=== PATIENT | female | born 1985 | race Asian ===

== ENCOUNTER 2024-02-08 08:00 | Outpatient (CLI) | payer OTHER ==
[2024-02-08 17:48] LABS: BILIRUBIN,URINE NEGATIVE (NEGATIVE); CLARITY,URINE CLEAR (CLEAR); GLUCOSE, URINE (UA) NEGATIVE (NEGATIVE); KETONES,URINE (UA) NEGATIVE (NEGATIVE); LEUKOCYTE ESTERASE, URINE SMALL (NEGATIVE); NITRITE,URINE NEGATIVE (NEGATIVE); OCCULT BLOOD,URINE NEGATIVE (NEGATIVE); PROTEIN,URINE NEGATIVE (NEGATIVE); UROBILINOGEN,URINE 0.2 (NORMAL) E.U./dL (NORMAL)
[2024-02-08 18:01] LABS: BACTERIA,URINE Few /HPF (None Seen); RBC,URINE 0-5 /HPF (0-5); SQUAMOUS EPITHELIAL CELL,UR MOD Squamous (<= Few)
== END 2024-02-08 23:59 | disposition home or self-care (01) ==
LOC: LAB.WC 08:00
PROVIDERS: ATTEND Obstetrics & Gynecology
DX: Z34.90 Encounter for supervision of normal pregnancy, unspecified, unspecified trimester (principal)
CPT/HCPCS: 81001; 87086

== ENCOUNTER 2024-02-09 16:16 | Outpatient (CLI) | payer OTHER ==
[2024-02-09 20:48] LABS: BASOPHILS % (AUTO) 0.3 %; EOSINOPHILS # (AUTO) 0.1 10^3/uL (0.0-0.7); EOSINOPHILS % (AUTO) 0.9 %; HCT - HEMATOCRIT 34.4 % (37.0-47.0); HGB - HEMOGLOBIN 11.1 g/dL (12.0-16.0); LYMPHOCYTES # (AUTO) 2.3 10^3/uL (1.5-3.5); LYMPHOCYTES % (AUTO) 26.9 %; MEAN CORPUSCULAR HEMOGLOBIN 26.9 pg (27.0-31.0); MEAN CORPUSCULAR HGB CONC 32.3 g/dL (32.0-36.0); MEAN CORPUSCULAR VOLUME 83.3 fL (81.0-99.0); MEAN PLATELET VOLUME 9.6 fL (7.9-10.8); MONOCYTES # (AUTO) 0.6 10^3/uL (0.0-1.0); MONOCYTES % (AUTO) 6.4 %; NEUTROPHILS # (AUTO) 5.6 10^3/uL (1.5-6.6); NEUTROPHILS % (AUTO) 65.2 %; PLT - PLATELET COUNT 293 10^3/uL (130-450); RED BLOOD COUNT 4.13 10^6/uL (4.20-5.40); RED CELL DISTRIBUTION WIDTH 13.5 % (12.0-15.0); WHITE BLOOD COUNT 8.6 x10^3/uL (4.8-10.8)
== END 2024-02-09 16:17 | disposition home or self-care (01) ==
LOC: LAB.N 16:16
PROVIDERS: ATTEND Obstetrics & Gynecology
DX: Z34.90 Encounter for supervision of normal pregnancy, unspecified, unspecified trimester (principal)
CPT/HCPCS: 36415; 85025; 86592; 86762; 86787; 86803; 86850; 86900; 86901; 87340; 87389

== ENCOUNTER 2024-02-25 13:22 | Outpatient (CLI) | payer OTHER ==
--- NOTE | 2024-02-25 16:58 | Ultrasound Report ---
PROCEDURE: OB 1st Trimester INDICATIONS: POSITIVE TEST OUTSIDE/PRIOR DATING DATA: Last menstrual period (LMP): 12/24/2023. LMP-based estimated date of delivery (LAMBERTO): 09/29/2024. First dating scan (date and location): Today's exam 09/28/2024. Estimated date of delivery (LAMBERTO) from first dating scan: . TECHNIQUE: Real-time scanning was performed of the fetus and maternal pelvic organs, with image documentation. COMPARISON: None. FINDINGS: Intrauterine gestational sac present. Embryo: 2.44 cm, 9 weeks 1 day Heart rate: 180 bpm. Other: No perigestational fluid collection. Measurement variability in dating: +/- 4 weeks by LMP, +/- 7 days by mean sac diameter (use before 6 weeks gestation if crown-rump length not able to be measured), +/- 5 days by crown-rump length (6-12 weeks gestation). Maternal organs: Ovaries appear within normal limits. IMPRESSION: Single living intrauterine at 9 weeks 1 day, LAMBERTO of 09/28/2024. Reviewed by: Soren Martinez MD on 02/25/2024 4:57 PM PDT Approved by: Soren Martinez MD on 02/25/2024 4:57 PM PDT Station ID: [id number]
== END 2024-02-25 13:23 | disposition home or self-care (01) ==
LOC: DI 13:22
PROVIDERS: ATTEND Obstetrics & Gynecology
DX: O26.21 Pregnancy care for patient with recurrent pregnancy loss, first trimester (principal); Z3A.09 9 weeks gestation of pregnancy

== ENCOUNTER 2024-03-13 11:50 | Outpatient (CLI) | payer OTHER ==
[2024-03-13 12:46] LABS: CREATININE,URINE 81.1 mg/dL; PROTEIN/CREATININE RATIO,URINE 0.1 (<=0.2)
[2024-03-13 12:48] LABS: ALBUMIN 4.4 g/dL (3.2-5.5); ALBUMIN/GLOBULIN RATIO 1.3 (1.0-2.2); BILIRUBIN,TOTAL 0.3 mg/dL (0.2-1.0); CALCIUM 9.4 mg/dL (8.5-10.3); CREATININE 0.5 mg/dL (0.6-1.3); POTASSIUM 3.4 mmol/L (3.5-4.5); TOTAL PROTEIN 7.9 g/dL (6.4-8.9)
[2024-03-13 14:14] LABS: ESTIMATED AVERAGE GLUCOSE 94 mg/dL (70-100); HEMOGLOBIN A1c% 4.9 % (4.27-6.07)
== END 2024-03-13 11:51 | disposition home or self-care (01) ==
LOC: LAB 11:50
PROVIDERS: ATTEND Obstetrics & Gynecology
DX: O09.521 Supervision of elderly multigravida, first trimester (principal); O99.891 Other specified diseases and conditions complicating pregnancy; N89.8 Other specified noninflammatory disorders of vagina
CPT/HCPCS: 36415; 80053; 82570; 83036; 84156

== ENCOUNTER 2024-04-10 08:00 | Outpatient (CLI) | payer OTHER ==
[2024-04-10 20:55] LABS: CHLAMYDIA TRACHOMATIS DNA NEGATIVE (NEGATIVE); NEISSERIA GONORRHOEAE DNA NEGATIVE (NEGATIVE); TRICHOMONAS VAGINALIS DNA NEGATIVE (NEGATIVE)
== END 2024-04-10 23:59 | disposition home or self-care (01) ==
LOC: LAB.WC 08:00
PROVIDERS: ATTEND Obstetrics & Gynecology
DX: Z11.3 Encounter for screening for infections with a predominantly sexual mode of transmission (principal)
CPT/HCPCS: 87491; 87591; 87661

== ENCOUNTER 2024-05-14 18:22 | Outpatient (CLI) | payer OTHER ==
[2024-05-14 18:51] VITALS: BP 121/61; O2SAT 97
[2024-05-14 19:02] LABS: BILIRUBIN,URINE NEGATIVE (NEGATIVE); GLUCOSE, URINE (UA) NEGATIVE (NEGATIVE); KETONES,URINE (UA) NEGATIVE (NEGATIVE); LEUKOCYTE ESTERASE, URINE NEGATIVE (NEGATIVE); NITRITE,URINE NEGATIVE (NEGATIVE); OCCULT BLOOD,URINE NEGATIVE (NEGATIVE); PROTEIN,URINE NEGATIVE (NEGATIVE); UROBILINOGEN,URINE 0.2 (NORMAL) E.U./dL (NORMAL)
[2024-05-14 19:03] LABS: CLARITY,URINE CLEAR (CLEAR)
--- NOTE | 2024-05-14 20:28 | PROVIDER PROGRESS NOTE ---
- HPI Chief Complaint: Other (cramping) Current : Vital Signs Temperature 98.2 F 05/14/24 18:34 Temperature 98.2 F 05/14/24 18:44 Heart Rate 80 05/14/24 18:44 Respiratory Rate 14 05/14/24 18:44 Blood Pressure 121/61 05/14/24 18:44 O2 Saturation 97 05/14/24 18:44 If not protocol: Oxygen Flow, liters/minute - Plan Plan: Su is a 39 yo at 20w2d who presents today for cramping. She reports cramping starting this afternoon, has not timed but estimates about every 15 - min. Denies vaginal bleeding, abnormal discharge, vaginal itching/irritation, bothersome urinary symptom (dysuria/frequency), diarrhea/constipation (last BM was yesterday), N/V, F/C. She is still feeling some cramping in triage but reports that it is a little better. + FM. RN reports abdomen soft, unable to palpate any contractions. Gen: NAD Chest: non labored respirations Abd: gravid, mildly TTP across lower abdomen R>L, no rebound/guarding Spec: small clear/white discharge present, cervix appears closed, no bleeding SVE: gentle SVE performed, external os closed [place]: quiet Labs reviewed: UA neg A/P: 39 yo at 20w2d with pelvic cramping. No evidence of labor. Vaginal swab collected for GC/CT/trich/BV, she did have trichimonas earlier in (negative on recheck on 04/10), will notify if treatment needed. Increased hydration, tylenol PRN, use of support belt discussed. Su is reassured and feels comfortable with discharge home. I have encouraged to her return to L&D with worsening symptoms/signs of labor. Sim Hanna MD
[2024-05-14 21:43] LABS: BACTERIAL VAGINOSIS DNA NEGATIVE (NEGATIVE); CANDIDA GLABRATA DNA NEGATIVE (NEGATIVE); CANDIDA GROUP DNA NEGATIVE (NEGATIVE); CANDIDA KRUSEI DNA NEGATIVE (NEGATIVE); TRICHOMONAS VAGINALIS DNA NEGATIVE (NEGATIVE)
== END 2024-05-14 20:20 | disposition home or self-care (01) ==
LOC: WFO 18:22 → FBP 18:24 → WFO 20:20
PROVIDERS: ATTEND Obstetrics & Gynecology
DX: O99.891 Other specified diseases and conditions complicating pregnancy (principal); R10.2 Pelvic and perineal pain; R10.814 Left lower quadrant abdominal tenderness; R10.813 Right lower quadrant abdominal tenderness; Z3A.20 20 weeks gestation of pregnancy; Z86.19 Personal history of other infectious and parasitic diseases
CPT/HCPCS: 81003; 81514; 99213

== ENCOUNTER 2024-09-22 02:58 | Inpatient (IN) ==
[2024-09-22] MEDS ORDERED: SODIUM CHLORIDE FLUSH 0.9% 10 ML SYRINGE IVP PRN (03:36)
[2024-09-22] MEDS ORDERED: METHYLERGONOVINE 0.2 MG/ML VIAL IM PRN (03:36)
[2024-09-22] MEDS ORDERED: NIFEdipine 10 MG CAPSULE PO PRN ×2 (03:36→22:37)
[2024-09-22] MEDS ORDERED: OXYTOCIN 10 UNIT/ML VIAL IM PRN (03:36)
[2024-09-22] MEDS ORDERED: lidocaine 1% 20 ML MDV ID PRN (03:36)
[2024-09-22] MEDS ORDERED: TERBUTALINE 1 MG/ML VIAL SUBQ PRN (03:36)
[2024-09-22] MEDS ORDERED: miSOPROStoL 200 MCG TABLET BC PRN (03:36)
[2024-09-22] MEDS ORDERED: OXYTOCIN/SODIUM CHLORIDE 500 ML IV PRN ×2 (03:36→22:37)
[2024-09-22] MEDS ORDERED: LABETALOL 20 MG/4 ML SYRINGE IVP PRN ×5 (03:36→22:37)
[2024-09-22] MEDS ORDERED: miSOPROStoL 200 MCG TABLET PR PRN (03:36)
[2024-09-22] MEDS ORDERED: TRANEXAMIC ACID IN NACL 1,000 MG/100 ML BAG IV PRN (03:36)
[2024-09-22] MEDS: AMPICILLIN 2 GM in SODIUM CHLORIDE 0.9% MINIBAG 100 ML IV ONE (04:30)
[2024-09-22] MEDS: LACTATED RINGERS 1,000 ML IV PRN (04:34)
[2024-09-22] MEDS ORDERED: MAGNESIUM SULFATE IN WATER 20 GM/500 ML IV.SOLN IV ONE (04:41)
[2024-09-22] MEDS: LABETALOL 20 MG/4 ML SYRINGE IVP PRN ×2 (04:41→11:50)
[2024-09-22] MEDS: fentaNYL 100 MCG/2 ML VIAL IVP PRN (04:42)
[2024-09-22 04:52] LABS: BASOPHILS % (AUTO) 0.4 %; EOSINOPHILS # (AUTO) 0.1 10^3/uL (0.0-0.7); HCT - HEMATOCRIT 34.4 % (37.0-47.0); HGB - HEMOGLOBIN 11.2 g/dL (12.0-16.0); LYMPHOCYTES % (AUTO) 28.7 %; MEAN CORPUSCULAR HEMOGLOBIN 27.1 pg (27.0-31.0); MEAN CORPUSCULAR HGB CONC 32.6 g/dL (32.0-36.0); MEAN CORPUSCULAR VOLUME 83.3 fL (81.0-99.0); MEAN PLATELET VOLUME 10.6 fL (7.9-10.8); MONOCYTES # (AUTO) 0.6 10^3/uL (0.0-1.0); MONOCYTES % (AUTO) 8.7 %; NEUTROPHILS # (AUTO) 4.1 10^3/uL (1.5-6.6); NEUTROPHILS % (AUTO) 57.8 %; PLT - PLATELET COUNT 179 10^3/uL (130-450); RED BLOOD COUNT 4.13 10^6/uL (4.20-5.40); RED CELL DISTRIBUTION WIDTH 16.9 % (12.0-15.0); WHITE BLOOD COUNT 7.1 x10^3/uL (4.8-10.8)
[2024-09-22] MEDS: MAGNESIUM SULFATE 2 GRAM 2 GM/50 ML BAG IV ONE (04:56)
--- NOTE | 2024-09-22 04:56 | HISTORY & PHYSICAL EXAMINATION ---
Admit History Visit Reason Visit Reason: Contractions and Membranes rupture Care: positive [facility] Risk/History: positive induced HTN Smoking Status: Never smoker Other Maternal History Other Maternal History: presents with SROM. clear fluid. contractions last night and this evening that kept her awake. She did get about 2 hrs of sleep before she came in. Headache a few days ago but not now. no edema. Intake Visit Reasons: 38 wk OB & NST Clinical Staff Note: Pt here for her 38.4wk visit and NST. Pt states she had a EM a couple days ago that did not go away with Tylenol and states she also had some visual changes. No EM today. Allergies No Known Drug Allergies Allergy (Verified 09/19/24 09:58) Home Medications - Last Reconciled 09/19/24 by Latrice Anderson RN aspirin (Adult Aspirin Regimen) 81 mg PO QDAY PNV #[id number] 30 mg iron-10 mg iron-1 mg caps PO Specific Issues/Plans LMP: 12/24/23 LAMBERTO by LMP: 09/29/24 US:02/25/24 @ 9+1 c/w LMP (us lamberto 09/28/2024) Final LAMBERTO:09/29/2024 Problems: - hx of SAB x3, most recent 08/2023 - AMA 39 yo. NIPT drawn. ASA ordered. 19 weeks has ASA but not taking. importance reviewed. [ ]plan for weekly NSTs at 36wks, IOL at 39wk - trichomonas 03/13/24. test of cure neg. - back pain, h/o scoliosis - PT ordered. Consider anesthesia exam pre-delivery. - S>D, growth US 08/25/24 with EFW 97.8%tile FOB: Wil. His 1st child, 2nd together. Her 3 children 20, 18, 8 - Juliann from prior FOB in [facility]. He 02/2024. baby is a boy, Wil [place]. Pre- Weight:137.0 BMI: 26.85 Blood type: B+ Antibody:Negative CBC: H/H 11.1/34.4 plt 293 RUB:Immune VZV:Immune HBsAg: Negative HepC: NR RPR/AB-EIA: NR HIV:NR PAP:03/13/24 ASCUS HPV51+, COLPO 04/10/24 Repeat PAP GC/CT:Negatvie HSV:denies in self and partner Genetic testing:NIPT negative FAS: 05/24 Placenta: anterior without previa Cord: 3VC SIOBHAN: WNL EFW: 98%ile 50gm OGCT: 110 3HR GTT: TDAP: 07/17/24 given mls Breast Pump: info given RSV: 08/14/24 given mls Antibody screen: 3rd trimester H/H 11.1/33.9 PLT 272 3rd trimester HIV GBS: *POSITIVE* Delivery plan: IOL at 39wks MOD: Contraception: planning for sterilization, PP vs laparoscopic OB Visit Log Initial Weight: 137 lb Date EGA Weight BP Fundal ht Pres HR Movement CTX Edema Cerv Dil Cerv Eff % Sta 06/05/24 23w 3d 143 lb(+6 lb) 114/60 22 150 active abs ent 07/13/24 28w 6d 151 lb(+14 lb) 110/68 24 Cephalic 155 active ab sent 07/17/24 29w 3d 152 lb(+15 lb) 106/60 26 150 absent oc casional absent 07/31/24 31w 3d 152 lb(+15 lb) 120/80 34 150 active ab sent 08/14/24 33w 3d 157 lb(+20 lb) 122/76 Cephalic 140 active occa sional absent 08/21/24 34w 3d 158 lb(+21 lb) 130/70 3637 cephalic 145 active occasional absen t 1 30 -3 09/04/24 36w 3d 158 lb 4 oz(+21 lb 4 oz) 138/79 38 ceph alic active occasional absent 09/13/24 37w 5d 162 lb(+25 lb) 130/76 38 155 active oc casional absent Notes Visit Date: 09/13/24 Last Updated by: Bravo Cisneros MD Discussed labor precautions. Discussed kick counts. Ready to be done, as she feels like everything is just harder. Discussed elective induction after 39 weeks. Visit Date: 09/04/24 Last Updated by: Sim Hanna MD Reports still having contractions, but irregular, unchanged since her triage visit over the weekend. NST today. Declines repeat SVE today. Recent growth US reviewed, SIOBHAN 23.9, EFW 3256g, 97.8%tile. She does feel like this baby is bigger than her others (largest 5lb5oz). She is nervous about having a big baby. Asks about delivery. We discussed recommendation for offering primary delivery with EFW of > 5000g without diabetes. Discussed if her US EFW was correct, EFW around 39-40wks would be approx 4250- 4500g. We discussed limitations of ultrasound in estimating weight, can be over or under estimate. EFW on [place] today 3200-3400g. We discussed that concern for macrosomia not an indication for IOL before 39wks. We discussed risks of shoulder dystocia, and although there may be an increase risk in the setting of macrosomia, it is difficult to predict and that most babies with macrosomia do not experience shoulder dystocia. Can reassess next visit. Visit Date: 08/21/24 Last Updated by: Sim Hanna MD Theresa reports having pubic bone pain as well as pain in her lower back. Discussed use of support band. She reports occasional contractions, feeling 2-3 contractions a day. Requests cervical exam, reports that with her first , she never really felt painful contractions but was 8cm when she arrived at the hospital. SVE 1-3. We discussed labor precautions in detail. Recommended that we start weekly NSTs at 36wks and plan for IOL in the 39th week for AMA. She has a growth US ordered, but has not heard from hospital about scheduling it, given number to call. Visit Date: 08/14/24 Last Updated by: Bravo Cisneros MD Doing very well today. RSV vaccine received. Baby is active. Having some cramping at night, but nothing regular. Belly band has improved belly and back pain greatly and continues to wear today. No leaking or bleeding. No signs of preeclampsia. Visit Date: 07/31/24 Last Updated by: Sim Hanna MD Reports persistent cold symptoms, confused about what she can take over the counter. More detailed list of safe medications in provided. Plan for growth US for S>D which is ordered. Discussed EPDS which is elevated today, 13. Thinks this is because of her not feeling well with cold symptoms. Declines need for referral for counseling or for medications for her mood. Can reassess at follow up visit. Discussed movement, she overall feels that baby's movement is normal today. labor/ movement precautions reviewed. Visit Date: 07/17/24 Last Updated by: Bravo Cisneros MD Patient doing well today. Occasional contractions at night. Consents to Tdap today. Discussed third trimester expectations. Visit Date: 07/13/24 Last Updated by: Bravo Cisneros MD Doing well today. Wants to wait on TDaP. Repeat US scheduled. Consents for tubal signed. Wants elective as she is worried the baby is big. Discussed that insurance likely will not pay for it, but we will look into it. Visit Date: 06/05/24 Last Updated by: Bravo Cisneros MD Doing very well aside from ongoing back pain. Has support belt, but has not tried. Encouraged to try and see. Ordered OGCT, RPR, CBC and will do between next week and next visit. Likely plan for growth scan in 3rd trimester but will assess after GDM screen. Encouraged staying active despite discomfort. last US: PROCEDURE: US OB Follow up INDICATIONS: UTERINE SIZE-DATE DISCREPANCY - EO OUTSIDE/PRIOR DATING DATA: Last menstrual period (LMP): 12/24/2023 LMP-based estimated date of delivery (LAMBERTO): 09/29/2024. First dating scan (date and location): 02/25/2024. Estimated date of delivery (LAMBERTO) from first dating scan: 09/28/2024. The below data below was generated using the working LAMBERTO of 09/29/2024 TECHNIQUE: Real-time scanning was performed of the fetus, with image documentation and biometric measurements. Endovaginal scanning: Not performed. COMPARISON: 05/24/2024. FINDINGS: General: A single living intrauterine gestation is present. Presentation: Vertex Placenta: Placental position is anterior, without previa. Amniotic fluid index: 23.9 cm, 93.2 percentile for gestational age. heart rate: 148 beats per minute. Maternal cervical canal: 3.27 cm long; normal length is 2.5 cm or more. biometrics: Biparietal diameter: 9.14 cm, 37 weeks 1 day, 94.8 percentile Head circumference: 32.7 cm, 37 weeks 1 day, 70th percentile Abdominal circumference: 34.69 cm, 38 weeks 4 days, greater than 99.5 percentile Femur length: 6.97 cm, 35 weeks 5 days, 63.2 percentile Estimated gestational age from initial scan: 35 weeks 0 days Composite gestational age from present scan: 37 weeks 1 day Estimated weight and percentile: 3256.5 g, 97.8 percentile Measurement variability in biometric dating: +/- 10 days from 12-20 weeks gestation, +/- 2 weeks from 20-30 weeks gestation, +/- 3 weeks at 30 weeks gestation or more. Other: Not applicable. IMPRESSION: 1. Living late third trimester intrauterine . Current ultrasound age is 15 days greater than clinical age based on initial LMP. Estimated weight is 97.8 percentile. 2. Borderline polyhydramnios, slightly less than 95th percentile. Reviewed by: Selvin Humphreys MD on 08/25/2024 HPI Diagnosis/Indication for NST: Gestational Hypertension Current : Vital Signs Pulse Rate 73 09/22/24 04:41 Blood Pressure 174/92 H 09/22/24 04:41 NST Procedure NST Procedure: baseline 140, + acels no decels Results and Plan Findings/Impression: reactive NST Plan: admit for labor. Meds/Allgy Home Medications Ambulatory Orders Medication Instructions Recorded Confirmed aspirin 81 mg tablet,delayed 81 mg PO QDAY 06/05/24 09/19/24 release (Adult Aspirin Regimen) vitamin#30 30 mg iron-10 cap PO 06/05/24 09/19/24 mg iron-folic acid 1 mg-omg3 capsule Allergies Allergies Allergy/AdvReac Type Severity Reaction Status Date / Time No Known Drug Allergies Allergy Verified 09/19/24 09:58 [facility] Medical History Medical History (Updated 09/22/24 @ 05:14 by Tanisha Acosta MD) Miscarriage x 2 in [facility]. no complications. Vaginal delivery x 3 in [facility]. largest baby 7 pounds. different FOB. that man 02/2024. no epidural. no complications. Scoliosis Family History Family History (Updated 07/13/24 @ 11:08 by Bravo Cisneros MD) Sister High blood pressure Mother High blood pressure Uterine cancer Aunt Breast cancer Social History Social History (Updated 06/05/24 @ 10:40 by Sully Lyn MA) Smoking Status: Never smoker ETOH Use: None Substance Use: denies use Physical Abdominal Exam Vital Signs: Pulse BP 73 174/92 H 09/22/24 04:41 09/22/24 04:41 Contraction Frequency (min/apart): q3-4 min Contraction Intensity: positive Moderate to strong Uterine Resting Tone: positive Soft Monitoring Heart Rate Baseline: 140 Strip Review: positive Category I Presentation Presentation: positive Vertex Vaginal Exam Membranes: positive Membranes ruptured Dilation (in cm): per rn 4 cm Speculum Exam Speculum Exam Performed: positive No Findings: positive Gross leak Other Notes Labor Progress Note/Additional Text: BP quite elevated. no other symptoms of PreE Plan for Labor Plan For Labor I expect patient to be DC'd or transferred within 96 hours.: Yes Plan for Labor: admit. ampicillin for GBS magnesium sulfate for seizure prophylaxis. 2 gm load and 1 gm/hr labetolol 10 mg iv anesthesia on their way for epidural. I do not want to bottom out bp before epidural. patient is very small so going low on doses. baby is very large. will need to watch for shoulder dystocia. EFW about 4.3 kg. prior baby 7 pounds. Conclusion/Plan Problem List (1) Severe preeclampsia: Qualifiers: Trimester: third trimester Qualified Code(s): O14.13 - Severe pre- eclampsia, third trimester (2) Large for dates complicating in third trimester, antepartum: Qualifiers: Fetus number: single or unspecified fetus Qualified Code(s): O36.63X0 - Maternal care for excessive growth, third trimester, not applicable or unspecified (3) GBS (group B Streptococcus carrier), +RV culture, currently : Lab Results Lab results reviewed: Yes 09/22/24 04:25
[2024-09-22 05:06] LABS: ALBUMIN 3.5 g/dL (3.2-5.5); ALBUMIN/GLOBULIN RATIO 1.1 (1.0-2.2); BILIRUBIN,TOTAL 0.3 mg/dL (0.2-1.0); CALCIUM 9.1 mg/dL (8.5-10.3); CREATININE 0.6 mg/dL (0.6-1.3); POTASSIUM 3.6 mmol/L (3.5-4.5); TOTAL PROTEIN 6.8 g/dL (6.4-8.9)
[2024-09-22] MEDS ORDERED: ROPIVACAINE 0.2% 200 MG/100 ML BAG EP ONE (05:15)
[2024-09-22] MEDS ORDERED: LIDOCAINE 2%-EPI 1:100000 20 ML MDV ONE ×4 (05:15→20:04)
[2024-09-22] MEDS: MAGNESIUM SULFATE IN WATER 20 GM/500 ML IV.SOLN IV SCH (05:39)
--- NOTE | 2024-09-22 06:02 | ANESTHESIA PROCEDURE NOTE ---
Pre-Anesthesia VS, & Labs Diagnosis Surgical Diagnosis:: labor pain Procedure Procedure: labor epidural Vitals Vital Signs: Temp Pulse Resp BP 36.9 C 73 18 174/92 H 09/22/24 03:19 09/22/24 04:41 09/22/24 03:19 09/22/24 04:41 NPO NPO: Other Is Patient ?: Yes Lab Results Current Lab Results: Laboratory Tests 09/22/24 04:25: WBC 7.1, RBC 4.13 L, Hgb 11.2 L, Hct 34.4 L, MCV 83.3, MCH 27.1, MCHC 32.6, RDW 16.9 H, Plt Count 179, MPV 10.6, Neut # (Auto) 4.1, Lymph # (Auto) 2.0, [place] # (Auto) 0.6, Eos # (Auto) 0.1, Baso # (Auto) 0.0, Absolute Nucleated RBC 0.00, Nucleated RBC % 0.0, Sodium 135, Potassium 3.6, Chloride 108, Carbon Dioxide 18 L, Anion Gap 9.0, BUN 9, Creatinine 0.6, Estimated GFR (MDRD) 110, Glucose 79, Calcium 9.1, Total Bilirubin 0.3, AST 16, ALT 11, A lkaline Phosphatase 153 H, Total Protein 6.8, Albumin 3.5, Globulin 3.3, Albumin/Globulin Ratio 1.1, Blood Type B POSITIVE, Antibody Screen NEGATIVE 09/22/24 04:25 09/22/24 04:25 Meds/Allgy Home Medications Ambulatory Orders Medication Instructions Recorded Confirmed aspirin 81 mg tablet,delayed 81 mg PO QDAY 06/05/24 09/19/24 release (Adult Aspirin Regimen) vitamin#30 30 mg iron-10 cap PO 06/05/24 09/19/24 mg iron-folic acid 1 mg-omg3 capsule Allergies Allergies Allergy/AdvReac Type Severity Reaction Status Date / Time No Known Drug Allergies Allergy Verified 09/19/24 09:58 [facility] Medical History Medical History (Updated 09/22/24 @ 05:14 by Tanisha Acosta MD) Miscarriage x 2 in [facility]. no complications. Vaginal delivery x 3 in [facility]. largest baby 7 pounds. different FOB. that man 02/2024. no epidural. no complications. Scoliosis Family History Family History (Updated 07/13/24 @ 11:08 by Bravo Cisneros MD) Sister High blood pressure Mother High blood pressure Uterine cancer Aunt Breast cancer Social History Social History (Updated 06/05/24 @ 10:40 by Sully Lyn MA) Smoking Status: Never smoker ETOH Use: None Substance Use: denies use Anesthesia Exam (Expanded) Exam General: Alert, Oriented x3 and Moderate distress Dental: WNL Mouth Openin Fingerbreadth Neck Mobility: Normal Mallampati classification: III Thyromental Distance: 4-6 cm Respiratory: Lungs clear Cardiovascular: Regular rate Plan Problem List (1) Severe preeclampsia: Qualifiers: Trimester: third trimester Qualified Code(s): O14.13 - Severe pre- eclampsia, third trimester (2) Large for dates complicating in third trimester, antepartum: Qualifiers: Fetus number: single or unspecified fetus Qualified Code(s): O36.63X0 - Maternal care for excessive growth, third trimester, not applicable or unspecified (3) GBS (group B Streptococcus carrier), +RV culture, currently : Plan Anesthesia Type: Epidural Consent for Procedure(s) Verified and Reviewed: Yes Code Status: Attempt Resuscitation ASA Classification ASA classification: 3-Severe systemic disease Is this case an emergency?: No
[2024-09-22] MEDS ORDERED: METOCLOPRAMIDE 10 MG/2 ML VIAL IVP PRN ×2 (06:04→22:03)
[2024-09-22] MEDS ORDERED: NALBUPHINE 10 MG/ML AMP IVP PRN (06:04)
[2024-09-22] MEDS ORDERED: NALOXONE 0.4 MG/ML VIAL IVP PRN ×3 (06:04→22:37)
[2024-09-22] MEDS ORDERED: diphenhydrAMINE INJ 50 MG/ML VIAL IVP PRN (06:04)
[2024-09-22] MEDS ORDERED: ePHEDrine 50 MG/ML VIAL IVP PRN ×2 (06:04→22:03)
[2024-09-22] MEDS: AMPICILLIN 1 GM in SODIUM CHLORIDE 0.9% MINIBAG 100 ML IV SCH (08:11)
[2024-09-22] MEDS: LACTATED RINGERS 500 ML IV ONE (08:12)
[2024-09-22] MEDS: SODIUM CHLORIDE FLUSH 0.9% 10 ML SYRINGE IVP SCH (08:13)
[2024-09-22] MEDS: LABETALOL 100 MG TABLET PO SCH (10:23)
[2024-09-22] MEDS: OXYTOCIN/SODIUM CHLORIDE 500 ML IV SCH (10:34)
[2024-09-22] MEDS: ROPIVACAINE 0.2% 200 MG/100 ML BAG EP PRN (13:39)
--- NOTE | 2024-09-22 13:48 | MISCELLANEOUS PROVIDER NOTE ---
Miscellaneous Provider Note - Note: called as patient uncomfortable this am, epidural increased from 6 to 8 cc/hr. Called again at 1347 as again uncomfortable, increased epidural continuous rate from 8 to 10 and increased PCEA dose to 5 Q10 min. Patient comfortable with contraction before I left the bedside.
--- NOTE | 2024-09-22 14:05 | PROVIDER PROGRESS NOTE ---
Labor Progress Note Labor Progress Note Labor Progress Note/Additional Text: S: Having some pain with contractions, epidural in place. Discussed possible IUPC placement if SVE unchanged, she did accept. O: VS reviewed SVE: unchanged, 7-8/80/-1, more cervix on right side. IUPC placed. monitoring: FHTs: 130s bpm baseline, + accel, - decel, mod variability [place]: 4-7 min Cat 1 A/P: 39 yo at 39w0d: - SROM in labor - GBS+ on ampicillin - Severe preeclampsia, on magnesium - Suspected macrosomia - SVE unchanged, therefore, IUPC placed. Tried starting pitocin earlier, but prolonged deceleration occured. FHTs have since been Cat 1 and contractions are inadequate. Discussed trying to start pitocin again and Su pelaez agree. Plan for repeat SVE in 2 hours. - Currently on magnesium, started labetalol 200mg BID. Continue to monitor blood pressures and will treat hypertension as needed - We have discussed possible risk of shoulder dystocia, will continue to monitor labor progress closely. Sim Hanna MD
--- NOTE | 2024-09-22 17:40 | PROVIDER PROGRESS NOTE ---
Labor Progress Note Labor Progress Note Labor Progress Note/Additional Text: S: Comfortable with epidural. + headache. O: VS reviewed. SVE: /-1, cervix much softer and stretchy compared to last exam. monitoring: FHTs: 130s bpm baseline, + accel, - decel, mod variability [place]: 2-4 min, inadequate MVUs Cat 1 A/P: 39 yo at 39w0d: - SROM in labor - GBS+ on ampicillin - Severe preeclampsia, on magnesium - Suspected macrosomia - Cervical change with this last check. Continue pitocin augmentation with titration to adequate MVUs. Has made slow progress in active labor, however, contractions had spaced and were very inadequate. Discussed reasonable to keep proceeding with labor and trying to obtain adequate MVUs with pitocin (MVUs have not yet been adequate). Will continue to watch labor progress closely with repeat SVE in 2 hrs. Su in agreement with plan. Sim Hanna MD
[2024-09-22] MEDS: ONDANSETRON 4 MG/2 ML VIAL IVP PRN (17:54)
[2024-09-22] MEDS ORDERED: SODIUM CHLORIDE 0.9% 10 ML VIAL IVP ONE ×3 (18:47→21:50)
[2024-09-22] MEDS ORDERED: AZITHROMYCIN INJ 500 MG in SODIUM CHLORIDE 0.9% 250 ML IV SCH (20:00)
[2024-09-22] MEDS ORDERED: ceFAZolin 2 GM VIAL ONE (20:01)
[2024-09-22] MEDS ORDERED: OXYTOCIN/SODIUM CHLORIDE 500 ML IV ONE (20:04)
[2024-09-22] MEDS: ACETAMINOPHEN 500 MG TABLET PO ONE (20:04)
[2024-09-22] MEDS ORDERED: PHENYLEPHRINE HCL 0.5 MG/5 ML AMPULE ONE (20:07)
[2024-09-22] MEDS ORDERED: ePHEDrine 50 MG/ML VIAL IVP ONE (20:07)
--- NOTE | 2024-09-22 20:14 | PROVIDER PROGRESS NOTE ---
Labor Progress Note Labor Progress Note Labor Progress Note/Additional Text: S: To bedside for repeat SVE. Su expresses interested in proceeding with primary delivery now. O: VS reviewed SVE: monitoring: FHTs: 130s bpm baseline, + accel, few small variable decelerations, mostly mod variability with periods of minimal variability [place]: 1-3 min, MVUs adequate starting around 7pm Cat 2 A/P: Minimal change with this cervical exam. MVUs just recently adequate on pitocin. Discussed that it is reasonable to proceed for at least another 2-4 hours, however, Su expresses desire for primary delivery now. She has previously signed [facility] consent for sterilization and also desires to proceed with bilateral salpingectomy. We reviewed risks of delivery including pain, bleeding (possibly requiring blood transfusion or as a life-saving measure hysterectomy), infection, damage to nearby structures including bowel/bladder, longer recovery time , increased risk for DVT, risk of /injury to mom or baby. Discussed increased risk for complications when is done in labor. With regards to bilateral salpingectomy, reviewed permanence and discussed risk of regret, possible ectopic . Consent was signed. Order for T&C x 2 units. Sim Hanna MD
[2024-09-22] MEDS: ceFAZolin (2G) 2 GM in SODIUM CHLORIDE 0.9% MINIBAG 100 ML IV ONE (20:42)
[2024-09-22] MEDS ORDERED: ROPIVACAINE 0.5% PF 20 ML VIAL ONE ×2 (20:54→21:50)
[2024-09-22] MEDS ORDERED: miSOPROStoL 200 MCG TABLET ONE (21:08)
[2024-09-22] MEDS ORDERED: METHYLERGONOVINE 0.2 MG/ML VIAL ONE (21:08)
[2024-09-22] MEDS ORDERED: CARBOPROST TROMETHAMINE 250 MCG/ML VIAL IM ONE (21:08)
[2024-09-22] MEDS ORDERED: TRANEXAMIC ACID 1,000 MG/10 ML VIAL ONE (21:13)
[2024-09-22] MEDS ORDERED: OXYTOCIN 10 UNIT/ML VIAL ONE (21:21)
[2024-09-22] MEDS ORDERED: ONDANSETRON 4 MG/2 ML VIAL ONE (21:28)
[2024-09-22] MEDS ORDERED: fentaNYL 100 MCG/2 ML VIAL ONE (21:54)
[2024-09-22] MEDS ORDERED: KETOROLAC 30 MG/ML VIAL ONE (21:55)
[2024-09-22] MEDS ORDERED: MORPHINE 2 MG/ML CARPUJECT IVP PRN (22:03)
[2024-09-22] MEDS ORDERED: ATROPINE ABBOJECT 1 MG/10 ML SYRINGE IVP PRN (22:03)
[2024-09-22] MEDS ORDERED: ONDANSETRON 4 MG/2 ML VIAL IVP PRN (22:03)
[2024-09-22] MEDS ORDERED: fentaNYL 100 MCG/2 ML VIAL IVP PRN (22:03)
--- NOTE | 2024-09-22 22:36 | ANESTHESIA POST OP EVALUATION ---
Anesthesia Post Eval Post Anesthesia Eval Vitals: Last Vital Signs Temp 36.9 C 09/22/24 03:19 Pulse 96 09/22/24 15:19 Resp 18 09/22/24 03:19 BP 170/100 H 09/22/24 15:19 CV Function Including HR & BP: Stable Pain Control: Satisfactory Nausea & Vomiting: Negative Mental Status: Baseline Respiratory Status: Airway Patent Hydration Status: Satisfactory Anesthesia Complications: None Other Details/Therapies Other Details/Therapies: Epidural pulled at case close after TAP blocks. Tip intact, site unremarkable.
[2024-09-22] MEDS ORDERED: MAGNESIUM HYDROXIDE 2,400 MG/30 ML UDC PO PRN (22:37)
[2024-09-22] MEDS ORDERED: hydrALAZINE INJ 20 MG/ML VIAL IVP PRN (22:37)
--- NOTE | 2024-09-22 22:37 | OPERATIVE REPORT ---
Operative Report General Admit Date: 09/22/24 Procedure Data: Operation Date: 09/22/24 20:47 Proposed Procedures p Section(Not Applicable) - Sim Hanna MD Actual Procedures p Section(Bilateral) - Sim Hanna MD Pre-Op Diagnosis: arrest of active labor Anesthesia Type Spinal Case Staff Anesthesia Provider: Mat Casper Case Times Procedure Start: 09/22/24 21:07 Procedure End: 09/22/24 22:09 Time out: 09/22/24 21:06 Other Other Information/Narrative: DATE OF PROCEDURE: 09/22/24 Surgeon: Sim Hanna MD E Business Specialist: GERALDO Sainz CNM was necessary as an medical record assistant for the entire procedure for adequate retraction and visualization, to shorten operative time, to assist with delivery of the , and to lower the risk of surgical injury. Pre-Op Diagnosis: - SIUP at 39w0d - Preeclampsia with severe features - GBS pos - Suspected macrosomia - Arrest of active phase - Desires permanent sterilization Post-Op Diagnosis: same, PPH due to uterine atony Procedures: primary delivery, bilateral salpingectomy Findings: infant in OP position, normal appearing uterus/tubes/ovaries, uterine atony Specimens: bilateral fallopian tubes Anesthesia Technique: epidural Estimated Blood Loss: 1200cc Blood Replacement: none Fluid Replacement: 500cc Drains: ramírez catheter, drained 60cc in OR, blood-tinged urine prior to start of case Complications: PPH due to uterine atony Condition: stable Procedure in Detail: The patient was taken to the operating room where epidural anesthesia was found to be adequate. Ramírez catheter was already in place. She was prepared and draped in the normal sterile fashion in the dorsal supine position with a leftward tilt. 2g Ancef and 500mg azithromycin were given for prophylaxis. A Pfannenstiel skin incision was made with the scalpel and carried down through the subcutaneous tissue in the midline. The remainder of the subcutaneous tissue was then bluntly. The fascia was incised in the midline and the incision was extended bluntly. Finger dissection was used to separate the rectus muscles in the midline and the peritoneum was entered bluntly and the layers extended bluntly. The bladder blade was then inserted. The lower uterine segment was incised in a transverse fashion with the scalpel. The uterine incision was extended bluntly. The bladder blade was removed and the infants head was brought to the hysterotomy. Fundal pressure applied and the delivered atraumatically. The cord was clamped and cut after 30 sec and the was handed off to the waiting provider. The placenta was removed with gentle uterine massage and cord traction. The uterus was exteriorized and cleared of all clots and debris with moist laparotomy sponges. The uterine incision was repaired in a running fashion with 0 Vicryl. A second layer of 0 monocryl was used in an imbricating fashion. An additional figure of eight stitch was placed at the left angle. Hemostasis of the hysterotomy noted. During repair of hysterotomy, uterine atony noted. Additional pitocin and 1g IV TXA was given. 250mcg IM hemabate was given followed by 600mcg of buccal misoprostol. The IV magnesium was also stopped. The bilateral fallopian tubes were each transected from the mesosalpinx and uterus using the ligasure device. Hemostasis noted. The posterior cul-de-sac was cleared of all clots and debris with laparotomy sponges, and the uterus was returned to the abdomen. Uterine tone was significantly improved. The gutters were cleared of all clots. Excellent hemostasis of the hysterotomy was again noted. The rectus muscles were carefully examined and hemostatic. The fascia was reapproximated with 0 Vicryl in a running fashion. The subcutaneous tissues was irrigated. The subcutaneous tissue was reapproximated with 2-0 Vicryl in two layers, and the skin was closed with 4-0 monocryl. Sterile bandage was placed. The patient tolerated the procedure well. Sponge, lap, needle, and instrument counts were correct at the end of the procedure. The patient was taken to the recovery room in stable condition. Sim Hanna MD
[2024-09-22] MEDS ORDERED: DIPHENOX/ATROPINE 2.5/0.025 MG TABLET PO PRN (22:46)
[2024-09-22] MEDS: hydrALAZINE INJ 20 MG/ML VIAL IVP PRN ×2 (23:02→23:26)
[2024-09-22 23:14] LABS: HCT - HEMATOCRIT 32.6 % (37.0-47.0); HGB - HEMOGLOBIN 10.3 g/dL (12.0-16.0); MEAN CORPUSCULAR HGB CONC 31.6 g/dL (32.0-36.0); MEAN CORPUSCULAR VOLUME 88.6 fL (81.0-99.0); MEAN PLATELET VOLUME 10.8 fL (7.9-10.8); RED BLOOD COUNT 3.68 10^6/uL (4.20-5.40); RED CELL DISTRIBUTION WIDTH 17.2 % (12.0-15.0); WHITE BLOOD COUNT 15.7 x10^3/uL (4.8-10.8)
[2024-09-22] MEDS: HYDROmorphone 0.5 MG/0.5 ML SYRINGE IVP PRN (23:34)
[2024-09-22 23:35] LABS: ALBUMIN/GLOBULIN RATIO 1.1 (1.0-2.2); BILIRUBIN,TOTAL 0.4 mg/dL (0.2-1.0); CALCIUM 7.4 mg/dL (8.5-10.3); CREATININE 0.8 mg/dL (0.6-1.3); POTASSIUM 3.9 mmol/L (3.5-4.5); TOTAL PROTEIN 5.8 g/dL (6.4-8.9)
[2024-09-23] MEDS: KETOROLAC 30 MG/ML VIAL IVP SCH (00:46)
[2024-09-23] MEDS: CITRIC ACID/SODIUM CITRATE 15 ML UDC PO ONE (01:15)
[2024-09-23] MEDS: ACETAMINOPHEN 500 MG TABLET PO SCH (01:19)
[2024-09-23] MEDS: LABETALOL 100 MG TABLET PO SCH (01:21)
[2024-09-23] MEDS: LACTATED RINGERS 1,000 ML IV SCH (03:58)
[2024-09-23] MEDS: DOCUSATE SODIUM 100 MG CAPSULE PO SCH (09:08)
[2024-09-23] MEDS: oxyCODONE 5 MG TABLET PO PRN (09:09)
[2024-09-23 09:34] LABS: HCT - HEMATOCRIT 23.5 % (37.0-47.0); HGB - HEMOGLOBIN 7.8 g/dL (12.0-16.0); MEAN CORPUSCULAR HEMOGLOBIN 27.7 pg (27.0-31.0); MEAN CORPUSCULAR HGB CONC 33.2 g/dL (32.0-36.0); MEAN CORPUSCULAR VOLUME 83.3 fL (81.0-99.0); MEAN PLATELET VOLUME 10.4 fL (7.9-10.8); RED BLOOD COUNT 2.82 10^6/uL (4.20-5.40); RED CELL DISTRIBUTION WIDTH 17.2 % (12.0-15.0); WHITE BLOOD COUNT 12.6 x10^3/uL (4.8-10.8)
[2024-09-23 09:54] LABS: ALBUMIN 2.6 g/dL (3.2-5.5); ALBUMIN/GLOBULIN RATIO 1.1 (1.0-2.2); BILIRUBIN,TOTAL 0.4 mg/dL (0.2-1.0); CALCIUM 6.9 mg/dL (8.5-10.3); CREATININE 0.7 mg/dL (0.6-1.3); POTASSIUM 4.1 mmol/L (3.5-4.5); TOTAL PROTEIN 4.9 g/dL (6.4-8.9)
--- NOTE | 2024-09-23 10:01 | PROVIDER PROGRESS NOTE ---
Subjective Prog Note Date Prog Note Date: 09/23/24 Subjective Subjective: Su was seen several times throughout the day. This morning, on magnesium, reported feeling like the room was spinning, changes in her vision, as well as feeling dizzy. Little in place. Passing flatus. No CP, SOB. Lochia appropriate. Tolerating regular diet without N/V. We discussed possible discontinuation of magnesium earlier mullen 24hrs since she is feeling so poorly vs risk of seizure. Since she was making excellent UOP and BPs low normal range, magnesium sulfate was discontinued this afternoon. Several hours after discontinuation of magnesium, Su reports she is feeling better. No longer feeling like the room is spinning or with vision changes. She has gotten up to use the bathroom. She does still report dizziness with standing. She has urinated spontaneously. Current Medications Current Medications Current Medications: Current Medications Generic Name Dose Route Start Last Admin Trade Name Freq PRN Reason Stop Dose Admin Acetaminophen 1,000 mg 09/22/24 23:00 09/23/24 06:13 Acetaminophen 500 Mg Tablet PO 1,000 mg Q8H LUIS M Administration Diphenhydramine HCl 12.5 - 25 mg 09/22/24 06:04 Diphenhydramine Inj 50 Mg/Ml Vial IVP Q6HR PRN ITCHING Diphenoxylate HCl/Atropine 2 tab 09/22/24 22:46 Diphenox/Atropine 2.5/0.025 Mg Tablet PO QID PRN Diarrhea Docusate Sodium 200 mg 09/23/24 09:00 09/23/24 09:08 Docusate Sodium 100 Mg Capsule PO 200 mg BID LUIS M Administration Ephedrine Sulfate 5 mg 09/22/24 06:04 Ephedrine 50 Mg/Ml Vial IVP Q5M PRN For SBP<100;give until SBP>100 Fentanyl 50 mcg 09/22/24 03:36 09/22/24 04:42 Fentanyl 100 Mcg/2 Ml Vial IVP 50 mcg Q1H PRN Administration Severe Pain (score 7-10) Hydralazine HCl 5 - 10 mg 09/22/24 03:36 09/22/24 23:02 Hydralazine Inj 20 Mg/Ml Vial IVP 5 mg Q20M PRN Administration SBP> or= 160 OR DBP> or= 110 Protocol Hydralazine HCl 10 mg 09/22/24 22:37 09/22/24 23:26 Hydralazine Inj 20 Mg/Ml Vial IVP 10 mg .ONCE PRN Administration SBP> or= 160 OR DBP> or= 110 Protocol Hydralazine HCl 5 - 20 mg 09/22/24 22:37 Hydralazine Inj 20 Mg/Ml Vial IVP Q20M PRN SBP> or= 160 OR DBP> or= 110 Protocol Lactated Ringer's 500 mls @ 999 mls/hr 09/22/24 03:36 09/23/24 04:00 Lr IV 75 mls/hr PRN PRN Administration labor Oxytocin/Sodium Chloride 500 mls @ 999 mls/hr 09/22/24 03:36 Pitocin/Sodium Chloride IV PRN PRN POST- HEMORR PREVENTION Protocol 999 MILLIUNIT/MIN Tranexamic Acid 1,000 mg in 100 mls @ 600 mls/hr 09/22/24 03:36 Tranexamic 1,000 Mg/100ml-Nacl IV Q30M PRN EBL >1200mL and within 3hr Magnesium Sulfate 20 gm in 500 mls @ 50 mls/hr 09/22/24 04:46 09/23/24 02:09 Magnesium Sulf 20 G/500 Ml Bag IV 2 gm/hr .Q10H LUIS M 50 mls/hr Administration 2 GM/HR Ropivacaine 200 mg in 100 mls @ 0 mls/hr 09/22/24 06:04 09/22/24 20:35 Naropin 0.2% EP 0 mls/hr PRN PRN Infusion PAIN Protocol Per Protocol Oxytocin/Sodium Chloride 500 mls @ 1 mls/hr 09/22/24 11:00 09/22/24 23:35 Pitocin/Sodium Chloride IV Infused TITR LUIS M Titration Protocol 1 MILLIUNIT/MIN Azithromycin 500 mg/ Sodium 250 mls @ 250 mls/hr 09/22/24 20:00 Chloride IV 09/23/24 19:59 ONCE LUIS M Oxytocin/Sodium Chloride 500 mls @ 999 mls/hr 09/22/24 22:37 Pitocin/Sodium Chloride IV PRN PRN POST- HEMORR PREVENTION Protocol 999 MILLIUNIT/MIN Ibuprofen 600 mg 09/23/24 23:00 Ibuprofen 600 Mg Tablet PO Q6HR LUIS M Ketorolac Tromethamine 15 mg 09/23/24 00:00 09/23/24 06:11 Ketorolac 30 Mg/Ml Vial IVP 09/23/24 12:01 15 mg Q6HR LUIS M Administration Labetalol HCl 20 - 80 mg 09/22/24 03:36 09/22/24 04:41 Labetalol 20 Mg/4 Ml Syringe IVP 10 mg Q10M PRN Administration SBP> or= 160 OR DBP> or= 110 Protocol Labetalol HCl 20 mg 09/22/24 03:36 Labetalol 20 Mg/4 Ml Syringe IVP .ONCE PRN SBP> or= 160 OR DBP> or= 110 Protocol Labetalol HCl 20 - 40 mg 09/22/24 03:36 Labetalol 20 Mg/4 Ml Syringe IVP Q10M PRN SBP> or= 160 OR DBP> or= 110 Protocol Labetalol HCl 10 mg 09/22/24 04:43 09/22/24 15:19 Labetalol 20 Mg/4 Ml Syringe IVP 10 mg .ONCE PRN Administration SBP> or= 160 OR DBP> or= 110 Protocol Labetalol HCl 20 - 40 mg 09/22/24 22:37 Labetalol 20 Mg/4 Ml Syringe IVP Q10M PRN SBP> or= 160 OR DBP> or= 110 Protocol Labetalol HCl 20 mg 09/22/24 22:37 Labetalol 20 Mg/4 Ml Syringe IVP .ONCE PRN SBP> or= 160 OR DBP> or= 110 Protocol Labetalol HCl 20 - 80 mg 09/22/24 22:37 Labetalol 20 Mg/4 Ml Syringe IVP Q10M PRN SBP> or= 160 OR DBP> or= 110 Protocol Labetalol HCl 200 mg 09/22/24 23:45 09/23/24 06:12 Labetalol 100 Mg Tablet PO 200 mg Q8HR LUIS M Administration Lidocaine HCl 20 ml 09/22/24 03:36 Lidocaine 1% 20 Ml Mdv ID 09/25/24 03:36 .ONCE PRN PERINEAL REPAIR Magnesium Hydroxide 2,400 mg 09/22/24 22:37 Magnesium Hydroxide 2,400 Mg/30 Ml Udc PO Q8HR PRN Constipation Methylergonovine Maleate 0.2 mg 09/22/24 03:36 Methylergonovine 0.2 Mg/Ml Vial IM .ONCE PRN Hemorrhage Metoclopramide HCl 10 mg 09/22/24 06:04 Metoclopramide 10 Mg/2 Ml Vial IVP Q6HR PRN Nausea / Vomiting Misoprostol 600 mcg 09/22/24 03:36 Misoprostol 200 Mcg Tablet BC .ONCE PRN Hemorrhage Misoprostol 800 mcg 09/22/24 03:36 Misoprostol 200 Mcg Tablet MS .ONCE PRN Hemorrhage Nalbuphine HCl 2.5 - 5 mg 09/22/24 06:04 Nalbuphine 10 Mg/Ml Amp IVP Q4H PRN ITCHING Naloxone HCl 0.1 mg 09/22/24 06:04 Naloxone 0.4 Mg/Ml Vial IVP Q2M PRN RR<8 Naloxone HCl 0.4 mg 09/22/24 22:37 Naloxone 0.4 Mg/Ml Vial IVP .ONCE PRN Opioid overdose Nifedipine 10 - 20 mg 09/22/24 03:36 Nifedipine 10 Mg Capsule PO Q20M PRN SBP> or= 160 OR DBP> or= 110 Protocol Nifedipine 10 - 20 mg 09/22/24 22:37 Nifedipine 10 Mg Capsule PO Q20M PRN SBP> or= 160 OR DBP> or= 110 Protocol Ondansetron HCl 4 mg 09/22/24 06:04 09/22/24 17:54 Ondansetron 4 Mg/2 Ml Vial IVP 4 mg Q6HR PRN Administration Nausea / Vomiting Oxycodone HCl 5 - 10 mg 09/22/24 22:37 09/23/24 09:09 Oxycodone 5 Mg Tablet PO 5 mg Q4HR PRN Administration Severe Pain 6 -10 Oxytocin 10 unit 09/22/24 03:36 Oxytocin 10 Unit/Ml Vial IM .ONCE PRN Step One if no IV access. Sodium Chloride 10 ml 09/22/24 03:36 Sodium Chloride Flush 0.9% 10 Ml Syringe IVP PRN PRN NEEDED PER PROVIDER ORDERS Sodium Chloride 10 ml 09/22/24 04:00 09/23/24 08:15 Sodium Chloride Flush 0.9% 10 Ml Syringe IVP Not Given Q8H ULIS M Terbutaline Sulfate 0.25 mg 09/22/24 03:36 Terbutaline 1 Mg/Ml Vial SUBQ .ONCE PRN Tachystole Objective Vital Signs/Intake & Output Reviewed Vital Signs: Yes Vital Signs: Vital Signs x48h Temp Pulse Resp BP Pulse Ox 09/23/24 09:00 106/65 09/23/24 08:00 97.7 F 74 14 98/60 98 09/23/24 04:14 98.2 F 92 16 114/64 98 Intake & Output: Intake & Output 09/20/24 09/21/24 09/22/24 09/23/24 23:59 23:59 23:59 23:59 Intake Total 2550 / 2550 719 / 719 Output Total 1735 / 1735 2054 / 2054 Balance 815 / 815 -1336 / -1336 Weight (kg) 163 lb Objective Comments/Other: Gen: NAD CV: RRR Chest: non labored respirations, CTAB Abd: soft, non-distended, appropriately TTP. Fundus firm. Incision: bandage in place is clean and dry Ext: trace LE edema, no evidence of DVT. SCDs in place. Lab Results 09/23/24 15:32 09/23/24 15:32 Other Labs: Lab Results x24hrs 09/23/24 09/22/24 09/22/24 Range/Units 09:25 21:30 12:54 WBC 12.6 H 15.7 H (4.8-10.8) x10^3/uL RBC 2.82 L 3.68 L (4.20-5.40) 10^6/uL Hgb 7.8 L 10.3 L (12.0-16.0) g/dL Hct 23.5 L 32.6 L (37.0-47.0) % MCV 83.3 88.6 (81.0-99.0) fL MCH 27.7 28.0 (27.0-31.0) pg MCHC 33.2 31.6 L (32.0-36.0) g/dL RDW 17.2 H 17.2 H (12.0-15.0) % Plt Count 141 156 (130-450) 10^3/uL MPV 10.4 10.8 (7.9-10.8) fL Sodium 127 L 131 L (135-145) mmol/L Potassium 4.1 3.9 (3.5-4.5) mmol/L Chloride 102 107 (101-111) mmol/L Carbon Dioxide 19 L 11 L* (21-32) mmol/L Anion Gap 6.0 13.0 (6-13) BUN 9 9 (6-20) mg/dL Creatinine 0.7 0.8 (0.6-1.3) mg/dL Estimated GFR (MDRD) 92 79 L (>89) Glucose 129 H 118 H (74-104) mg/dL Calcium 6.9 L 7.4 L (8.5-10.3) mg/dL Total Bilirubin 0.4 0.4 (0.2-1.0) mg/dL AST 26 21 (10-42) IU/L ALT 11 11 (10-60) IU/L Alkaline Phosphatase 120 135 H (42-121) IU/L Total Protein 4.9 L 5.8 L (6.4-8.9) g/dL Albumin 2.6 L 3.0 L (3.2-5.5) g/dL Globulin 2.3 2.8 (2.1-4.2) g/dL Albumin/Globulin Ratio 1.1 1.1 (1.0-2.2) U Random Total Protein 26 mg/dL Blood Type Antibody Screen Crossmatch IS Only 09/22/24 Range/Units 04:25 WBC (4.8-10.8) x10^3/uL RBC (4.20-5.40) 10^6/uL Hgb (12.0-16.0) g/dL Hct (37.0-47.0) % MCV (81.0-99.0) fL MCH (27.0-31.0) pg MCHC (32.0-36.0) g/dL RDW (12.0-15.0) % Plt Count (130-450) 10^3/uL MPV (7.9-10.8) fL Sodium (135-145) mmol/L Potassium (3.5-4.5) mmol/L Chloride (101-111) mmol/L Carbon Dioxide (21-32) mmol/L Anion Gap (6-13) BUN (6-20) mg/dL Creatinine (0.6-1.3) mg/dL Estimated GFR (MDRD) (>89) Glucose (74-104) mg/dL Calcium (8.5-10.3) mg/dL Total Bilirubin (0.2-1.0) mg/dL AST (10-42) IU/L ALT (10-60) IU/L Alkaline Phosphatase (42-121) IU/L Total Protein (6.4-8.9) g/dL Albumin (3.2-5.5) g/dL Globulin (2.1-4.2) g/dL Albumin/Globulin Ratio (1.0-2.2) U Random Total Protein mg/dL Blood Type B POSITIVE Antibody Screen NEGATIVE Crossmatch IS Only See Detail Assessment/Plan Problem List (1) S/P section: Impression: - Continue routine postoperative care (2) Severe preeclampsia: Impression: - Magnesium discontinued at approximately 18hrs after delivery, Su feeling much better after stopping mag. Received dose of 200mg labetalol at 6AM this morning, but have discontinued labetalol with normal to low normal BPs. Preeclampsia labs normal. WIll continue to monitor. Qualifiers: Trimester: third trimester Qualified Code(s): O14.13 - Severe pre- eclampsia, third trimester (3) Acute blood loss anemia: Impression: - VW wnl. Hgb reported this afternoon and stable at 7.8. Currently experiencing some dizziness, but with some improvement after stopping mag. WIll monitor overnight. We discussed if still symptomatic in the morning, would consider blood transfusion. Encouraged assistance when getting up to go to the bathroom. Repeat labs ordered for AM.
[2024-09-23 15:37] LABS: HCT - HEMATOCRIT 23.4 % (37.0-47.0); HGB - HEMOGLOBIN 7.8 g/dL (12.0-16.0); MEAN CORPUSCULAR HEMOGLOBIN 27.7 pg (27.0-31.0); MEAN CORPUSCULAR HGB CONC 33.3 g/dL (32.0-36.0); MEAN PLATELET VOLUME 10.2 fL (7.9-10.8); RED BLOOD COUNT 2.82 10^6/uL (4.20-5.40); RED CELL DISTRIBUTION WIDTH 17.3 % (12.0-15.0); WHITE BLOOD COUNT 11.6 x10^3/uL (4.8-10.8)
[2024-09-23 18:26] LABS: ALBUMIN 2.7 g/dL (3.2-5.5); ALBUMIN/GLOBULIN RATIO 1.2 (1.0-2.2); BILIRUBIN,TOTAL 0.2 mg/dL (0.2-1.0); CALCIUM 6.5 mg/dL (8.5-10.3); CREATININE 0.9 mg/dL (0.6-1.3); POTASSIUM 3.7 mmol/L (3.5-4.5)
[2024-09-23] MEDS ORDERED: IBUPROFEN 600 MG TABLET PO ONE (20:14)
[2024-09-23] MEDS: IBUPROFEN 600 MG TABLET PO SCH (20:17)
[2024-09-24 07:58] LABS: ALBUMIN/GLOBULIN RATIO 1.1 (1.0-2.2); BILIRUBIN,TOTAL 0.2 mg/dL (0.2-1.0); CREATININE 0.7 mg/dL (0.6-1.3); TOTAL PROTEIN 5.8 g/dL (6.4-8.9)
[2024-09-24 08:03] LABS: HCT - HEMATOCRIT 26.1 % (37.0-47.0); HGB - HEMOGLOBIN 8.5 g/dL (12.0-16.0); MEAN CORPUSCULAR HEMOGLOBIN 28.2 pg (27.0-31.0); MEAN CORPUSCULAR HGB CONC 32.6 g/dL (32.0-36.0); MEAN CORPUSCULAR VOLUME 86.7 fL (81.0-99.0); MEAN PLATELET VOLUME 10.4 fL (7.9-10.8); RED BLOOD COUNT 3.01 10^6/uL (4.20-5.40); RED CELL DISTRIBUTION WIDTH 17.9 % (12.0-15.0); WHITE BLOOD COUNT 13.9 x10^3/uL (4.8-10.8)
--- NOTE | 2024-09-24 11:43 | PROVIDER PROGRESS NOTE ---
Subjective Prog Note Date Prog Note Date: 09/24/24 Subjective Subjective: She reports that she is feeling better today. Dizziness has resolved. No EM, vision changes, CP, SOB. Pain is well controlled with current medications. She is ambulating around the room. She is tolerating a normal diet. She is voiding spontaneously. Lochia reported as minimal. She reports she is passing flatus. Current Medications Current Medications Current Medications: Current Medications Generic Name Dose Route Start Last Admin Trade Name Mandeepq PRN Reason Stop Dose Admin Acetaminophen 1,000 mg 09/22/24 23:00 09/24/24 06:14 Acetaminophen 500 Mg Tablet PO 1,000 mg Q8H LUIS M Administration Diphenhydramine HCl 12.5 - 25 mg 09/22/24 06:04 Diphenhydramine Inj 50 Mg/Ml Vial IVP Q6HR PRN ITCHING Diphenoxylate HCl/Atropine 2 tab 09/22/24 22:46 Diphenox/Atropine 2.5/0.025 Mg Tablet PO QID PRN Diarrhea Docusate Sodium 200 mg 09/23/24 09:00 09/23/24 20:50 Docusate Sodium 100 Mg Capsule PO 200 mg BID LUIS M Administration Ephedrine Sulfate 5 mg 09/22/24 06:04 Ephedrine 50 Mg/Ml Vial IVP Q5M PRN For SBP<100;give until SBP>100 Fentanyl 50 mcg 09/22/24 03:36 09/22/24 04:42 Fentanyl 100 Mcg/2 Ml Vial IVP 50 mcg Q1H PRN Administration Severe Pain (score 7-10) Hydralazine HCl 5 - 10 mg 09/22/24 03:36 09/22/24 23:02 Hydralazine Inj 20 Mg/Ml Vial IVP 5 mg Q20M PRN Administration SBP> or= 160 OR DBP> or= 110 Protocol Hydralazine HCl 10 mg 09/22/24 22:37 09/22/24 23:26 Hydralazine Inj 20 Mg/Ml Vial IVP 10 mg .ONCE PRN Administration SBP> or= 160 OR DBP> or= 110 Protocol Hydralazine HCl 5 - 20 mg 09/22/24 22:37 Hydralazine Inj 20 Mg/Ml Vial IVP Q20M PRN SBP> or= 160 OR DBP> or= 110 Protocol Ropivacaine 200 mg in 100 mls @ 0 mls/hr 09/22/24 06:04 09/22/24 20:35 Naropin 0.2% EP 0 mls/hr PRN PRN Infusion PAIN Protocol Per Protocol Ibuprofen 600 mg 09/23/24 23:00 09/24/24 03:30 Ibuprofen 600 Mg Tablet PO 600 mg Q6HR LUIS M Administration Labetalol HCl 20 - 80 mg 09/22/24 03:36 09/22/24 04:41 Labetalol 20 Mg/4 Ml Syringe IVP 10 mg Q10M PRN Administration SBP> or= 160 OR DBP> or= 110 Protocol Labetalol HCl 20 mg 09/22/24 03:36 Labetalol 20 Mg/4 Ml Syringe IVP .ONCE PRN SBP> or= 160 OR DBP> or= 110 Protocol Labetalol HCl 20 - 40 mg 09/22/24 03:36 Labetalol 20 Mg/4 Ml Syringe IVP Q10M PRN SBP> or= 160 OR DBP> or= 110 Protocol Labetalol HCl 10 mg 09/22/24 04:43 09/22/24 15:19 Labetalol 20 Mg/4 Ml Syringe IVP 10 mg .ONCE PRN Administration SBP> or= 160 OR DBP> or= 110 Protocol Labetalol HCl 20 - 40 mg 09/22/24 22:37 Labetalol 20 Mg/4 Ml Syringe IVP Q10M PRN SBP> or= 160 OR DBP> or= 110 Protocol Labetalol HCl 20 mg 09/22/24 22:37 Labetalol 20 Mg/4 Ml Syringe IVP .ONCE PRN SBP> or= 160 OR DBP> or= 110 Protocol Labetalol HCl 20 - 80 mg 09/22/24 22:37 Labetalol 20 Mg/4 Ml Syringe IVP Q10M PRN SBP> or= 160 OR DBP> or= 110 Protocol Magnesium Hydroxide 2,400 mg 09/22/24 22:37 Magnesium Hydroxide 2,400 Mg/30 Ml Udc PO Q8HR PRN Constipation Metoclopramide HCl 10 mg 09/22/24 06:04 Metoclopramide 10 Mg/2 Ml Vial IVP Q6HR PRN Nausea / Vomiting Nalbuphine HCl 2.5 - 5 mg 09/22/24 06:04 Nalbuphine 10 Mg/Ml Amp IVP Q4H PRN ITCHING Naloxone HCl 0.1 mg 09/22/24 06:04 Naloxone 0.4 Mg/Ml Vial IVP Q2M PRN RR<8 Naloxone HCl 0.4 mg 09/22/24 22:37 Naloxone 0.4 Mg/Ml Vial IVP .ONCE PRN Opioid overdose Nifedipine 10 - 20 mg 09/22/24 03:36 Nifedipine 10 Mg Capsule PO Q20M PRN SBP> or= 160 OR DBP> or= 110 Protocol Nifedipine 10 - 20 mg 09/22/24 22:37 Nifedipine 10 Mg Capsule PO Q20M PRN SBP> or= 160 OR DBP> or= 110 Protocol Ondansetron HCl 4 mg 09/22/24 06:04 09/22/24 17:54 Ondansetron 4 Mg/2 Ml Vial IVP 4 mg Q6HR PRN Administration Nausea / Vomiting Oxycodone HCl 5 - 10 mg 09/22/24 22:37 09/24/24 01:14 Oxycodone 5 Mg Tablet PO 10 mg Q4HR PRN Administration Severe Pain 6 -10 Oxytocin 10 unit 09/22/24 03:36 Oxytocin 10 Unit/Ml Vial IM .ONCE PRN Step One if no IV access. Sodium Chloride 10 ml 09/22/24 03:36 Sodium Chloride Flush 0.9% 10 Ml Syringe IVP PRN PRN NEEDED PER PROVIDER ORDERS Sodium Chloride 10 ml 09/22/24 04:00 09/23/24 20:51 Sodium Chloride Flush 0.9% 10 Ml Syringe IVP 10 ml Q8H LUIS M Administration Objective Vital Signs/Intake & Output Reviewed Vital Signs: Yes Vital Signs: Vital Signs x48h Temp Pulse Resp BP Pulse Ox 09/24/24 09:30 141/84 H 09/24/24 08:43 98.1 F 152/94 H 09/24/24 07:45 77 15 147/97 H 98 09/24/24 03:45 99.5 F 86 16 139/82 H 97 Intake & Output: Intake & Output 09/21/24 09/22/24 09/23/24 09/24/24 23:59 23:59 23:59 23:59 Intake Total 2550 / 2550 1811 / 1811 Output Total 1735 / 1735 4580 / 4580 Balance 815 / 815 -2769 / -2769 Weight (kg) 163 lb Objective Comments/Other: Gen: NAD Chest: non labored respirations Abd: fundus firm, appropriately TTP, non-distended. Incision: bandage in place is clean and dry. Ext: no LE edema, no evidence of DVT Lab Results 09/24/24 07:33 09/24/24 07:33 Other Labs: Lab Results x24hrs 09/24/24 09/23/24 09/23/24 Range/Units 07:33 15:32 09:25 WBC 13.9 H 11.6 H (4.8-10.8) x10^3/uL RBC 3.01 L 2.82 L (4.20-5.40) 10^6/uL Hgb 8.5 L 7.8 L (12.0-16.0) g/dL Hct 26.1 L 23.4 L (37.0-47.0) % MCV 86.7 83.0 (81.0-99.0) fL MCH 28.2 27.7 (27.0-31.0) pg MCHC 32.6 33.3 (32.0-36.0) g/dL RDW 17.9 H 17.3 H (12.0-15.0) % Plt Count 195 148 (130-450) 10^3/uL MPV 10.4 10.2 (7.9-10.8) fL Sodium 135 131 L (135-145) mmol/L Potassium 4.0 3.7 (3.5-4.5) mmol/L Chloride 108 105 (101-111) mmol/L Carbon Dioxide 21 20 L (21-32) mmol/L Anion Gap 6.0 6.0 (6-13) BUN 12 8 (6-20) mg/dL Creatinine 0.7 0.9 (0.6-1.3) mg/dL Estimated GFR (MDRD) 92 69 L (>89) Glucose 79 159 H (74-104) mg/dL Calcium 8.0 L 6.5 L* (8.5-10.3) mg/dL Magnesium 6.7 H* (1.7-2.3) mg/dL Total Bilirubin 0.2 0.2 (0.2-1.0) mg/dL AST 19 18 (10-42) IU/L ALT 11 10 (10-60) IU/L Alkaline Phosphatase 127 H 106 (42-121) IU/L Total Protein 5.8 L 5.0 L (6.4-8.9) g/dL Albumin 3.0 L 2.7 L (3.2-5.5) g/dL Globulin 2.8 2.3 (2.1-4.2) g/dL Albumin/Globulin Ratio 1.1 1.2 (1.0-2.2) Assessment/Plan Problem List (1) S/P section: Impression: - Continue routine postop care - Anticipate discharge home tomorrow as long as BP is well-controlled (2) Severe preeclampsia: Impression: - BPs increasing today, mildly elevated. Discussed restarting antihypertensive therapy, procardia 30XL daily started. - Preeclampsia labs normal this AM. Qualifiers: Trimester: third trimester Qualified Code(s): O14.13 - Severe pre- eclampsia, third trimester (3) Acute blood loss anemia: Impression: - hgb improved slightly, 8.5 this morning. Dizziness has resolved. Plan for oral iron on discharge.
[2024-09-24] MEDS: NIFEdipine ER 30 MG TABLET PO SCH (11:56)
[2024-09-25 09:57] VITALS: BP 144/76; TEMP 98.4; O2SAT 98
--- NOTE | 2024-09-25 13:06 | Discharge Summary ---
"Discharge Summary Admit Date: 09/22/24 Discharge Date: 09/25/24 Discharging Provider: Tanisha Acosta MD Code Status: Attempt Resuscitation DIAGNOSES Admission Diagnoses: PROM at term, severe preeclampsia, + GBS, LGA . Discharge Diagnoses with Status of Each Condition: same, delivered. HPI History of Present Illness: Patient is a 39 yo at 38+ weeks GA. presents with contractions, SROM, elevated bp. She was + GBS. baby is 90+%ile on US. First baby with her new Wil. CONSULTS | PROCEDURES Procedures: augentation of labor, GBS prophylaxis, magnesium seizure prophylaxis, Low transverse c section and bilateral salpingectomies for failure to progress in labor. HOSPITAL COURSE Hospital Course: Patient presented in labor with SROM. 4 cm dilated. elevated bps x 2 over 160. started on magnesium, ampicillin. augmented with pitocin. Failed to progress past 8 cm, so c section was performed. Desired sterility so salpingectomies were also done. baby boy Wil 3870 grams Apgars 8/8. recovered without complication. discharged on POD #3. ALLERGIES Allergies Allergy/AdvReac Type Severity Reaction Status Date / Time No Known Drug Allergies Allergy Verified 09/19/24 09:58 MEDICATIONS Ambulatory Orders Medication Instructions Recorded Confirmed vitamin with calcium 1 tab PO DAILY 09/22/24 09/22/24 no.72-iron 27 mg-folic acid 1 mg tablet (M-Roopa Plus) acetaminophen 500 mg tablet 1,000 mg (2 x 500 mg) PO Q8H PRN 09/25/24 (Acetaminophen Extra Strength) Pain #60 tabs docusate sodium 100 mg capsule 100 - 200 mg (1 - 2 x 100 mg) PO 09/25/24 BID PRN Constipation #60 caps ibuprofen 600 mg tablet 600 mg PO Q6H PRN Pain #30 tabs 09/25/24 nifedipine 30 mg tablet,extended 30 mg PO DAILY #90 tabs 09/25/24 release 24 hr oxycodone 5 mg tablet 5 mg PO Q4HR PRN Moderate Pain 09/25/24 (Level 4-6) #20 tabs PHYSICAL EXAM AT DISCHARGE General Appearance: positive No acute distress and Other (very slow to get out of the chair to rest in bed so I could examine her. ) Respiratory: positive No respiratory distress Cardiovascular: positive Regular rate & rhythm Abdomen: positive No distention, Tenderness and Other (wound healing well with steri strips. abdomen is soft. tender low above incision) Skin: positive Color nml Extremities: positive Non-tender and No pedal edema Neurologic/Psychiatric: positive Oriented x3 and Mood/affect nml LABS 09/24/24 07:33 09/24/24 07:33 FOLLOW UP Follow Up: in clinic 1 week. TIME SPENT Time Spent in Discharge (Minutes): 30 Discharge Plan Discharge Patient Disposition: Home, Self Care Condition: Good Prescriptions: New acetaminophen [Acetaminophen Extra Strength] 500 mg tablet 1,000 mg PO Q8H PRN (Reason: Pain) Qty: 60 1RF docusate sodium 100 mg capsule 100 - 200 mg PO BID PRN (Reason: Constipation) Qty: 60 1RF ibuprofen 600 mg tablet 600 mg PO Q6H PRN (Reason: Pain) Qty: 30 0RF oxycodone 5 mg tablet 5 mg PO Q4HR PRN (Reason: Moderate Pain (Level 4-6)) Qty: 20 0RF nifedipine 30 mg Tablet Extended Release 24hr 30 mg PO DAILY Qty: 90 0RF Continued M- Plus 27 mg iron- 1 mg tablet 1 tab PO DAILY Discontinued aspirin [Adult Aspirin Regimen] 81 mg tablet,delayed release (DR/EC) 81 mg PO DAILY Activity Restrictions/Additional Instructions: take bp bid. if over 160/110 take another bp pill go to ER. if over 150/100 take a second dose of medication and recheck in 1 hr. let us know when the office is open that you had to do that. Print Language: [place]ij[place] Patient Instructions: Preeclampsia, Follow-up Care: Tanisha Acosta MD [Provider Admit Priv/Credential] -"
--- NOTE | 2024-09-25 13:06 | Labor Flowsheet ---
Labor Flowsheet Datetime Report Generated by CPN: 09/25/2024 13:06 Datetime: 09/22/2024 20:41 Contraction Comments: IUPC discontinued. pt to OR for Datetime: 09/22/2024 20:39 Pulse: 88 SpO2 (%): 98 LaborFlag: Labor Datetime: 09/22/2024 20:30 VITAL SIGNS NBP Sys/Vicki/Mean (mmHg): 136 : 74 : 90 UTERINE ACTIVITY Monitor Mode: Internal Frequency (min): 3-5 Duration (sec): 60-80 Pattern: Normal: <= 5 Contractions in 10 Minutes ASSESSMENT A Monitor Mode: External US FHR Baseline Rate : 130 Variability: Moderate 6-25 bpm Accelerations: 15X15 Decelerations: None Category: Category I PATIENT CARE Oxygen Method: Room Air Datetime: 09/22/2024 20:15 Comments: variable x1 with contraction Datetime: 09/22/2024 19:52 COMMUNICATION Communication Comments: surgery crew being notified Datetime: 09/22/2024 19:48 MEDICATIONS Pitocin (milliunits): Discontinued Datetime: 09/22/2024 19:34 Patient Position/Activity: Left Tilt Patient Care Comments: with peanut ball Datetime: 09/22/2024 19:32 VAGINAL EXAM Dilatation (cm): 8.0 Effacement (%): 90 Station: 0 Exam by: Dr. Sydni Hanna Vaginal Bleeding: Normal Show Datetime: 09/22/2024 19:15 Quality: Strong Resting Tone (Palpate): Relaxed Datetime: 09/22/2024 19:10 Respirations: 16 Temperature (C): 37.4 PAIN Pain Presence: None/Denies Pain Relief Measures: Comfort Measures MATERNAL ASSESSMENT Level of Consciousness: Drowsy DTR's/Clonus: DTRs 2+; No Clonus Headache: Denies Breath Sounds, Left: Clear and Equal Breath Sounds, Right: Clear and Equal Nausea/Vomiting: Present RUQ Epigastric Pain: Denies Comfort Measures: Breathing/Relaxation Datetime: 09/22/2024 19:00 Shirley Units (mmHg): 200 Pitocin Checklist: At Least 1 Acceleration of 15 bpm x 15 Seconds in 30 Minutes or Adequate Variabi lity; No More than 1 Late Deceleration Occurred in Past 30 Minutes; No More than 2 Variable Decelerat ions > 60 Seconds in Duration and decreasing >60 bpm in 30 minutes; No More than 5 Uterine Contractio ns in 10 Minutes for any 20 Minute Interval; Uterus Palpates Soft between Contractions; IUPC Resting Tone less than 25 mmHg Datetime: 09/22/2024 17:56 Hygiene: Gown Changed Datetime: 09/22/2024 15:19 Medication Comments: labetalol 10mg IV Datetime: 09/22/2024 13:12 Monitor Interventions for UA: IUPC Inserted Datetime: 09/22/2024 12:20 Antibiotics: Ampicillin IV 1 Gm Datetime: 09/22/2024 11:00 Actions for Decelerations: Side to Side; Pitocin Off; IV Bolus; Sterile Vaginal Exam; Provide r Notified Datetime: 09/22/2024 07:20 Epidural Procedure: Test Dose Datetime: 09/22/2024 07:03 PROCEDURE TIME OUT Procedure Verify: Correct Patient Identity; Correct Side and Site are Marked; Accurate Procedure Co nsent Form; Agreement on Procedure to be Done; Correct Patient Position; Relevant Images and Results are Properly Labeled and Displayed; Addressed Need to Administer Antibiotics or Fluids for Irrigation ; Safety Precautions Based on Patient History or Medication Use ANESTHESIA Anesthesia Plans: Epidural Epidural Positioning: Sitting Datetime: 09/22/2024 06:52 Membranes Ruptured Date/Time: 09/22/2024 02:25 Membranes Rupture Method: Spontaneous Amniotic Fluid Color: Clear Amniotic Fluid Amount: Large Datetime: 09/22/2024 06:49 Stage of : Labor Datetime: 09/22/2024 06:17 Epidural Procedure Other: Cath Removed; Cath Intact Anesthesia Comments: by GABRIELLE Jiménez Noble Datetime: 09/22/2024 05:39 Magnesium/Antihypertensives: Magnesium Sulfate IV (Gm/hr) @
== END 2024-09-25 13:03 | disposition home or self-care (01) | DRG 784 ==
LOC: WFO 02:58 → FBP 03:03
PROVIDERS: ADMIT Obstetrics & Gynecology; ATTEND Obstetrics & Gynecology
DX: O99.824 Streptococcus B carrier state complicating childbirth; O72.1 Other immediate postpartum hemorrhage; O14.14 Severe pre-eclampsia complicating childbirth; O62.0 Primary inadequate contractions; O36.63X0 Maternal care for excessive fetal growth, third trimester, not applicable or unspecified; Z37.0 Single live birth; O90.81 Anemia of the puerperium; D62 Acute posthemorrhagic anemia; Z30.2 Encounter for sterilization; Z3A.38 38 weeks gestation of pregnancy